=== PATIENT | female | born 1950 | race African-American/Black ===

== ENCOUNTER → 2020-10-26 | Outpatient (CLI) | payer BC ==
[2020-10-24 08:16] LABS: COVID AG,FIA SOURCE NASOPHARYNGEAL
[~2020-10-26] MED LIST: ACETAMINOPHEN 1000 MG/ISO-OSM 100 ML IV ONE; BUPIVACAINE HCL/PF 0.25% 30 ML VIAL ONE; BUPIVACAINE HCL/PF 0.5% 30 ML VIAL ONE; CeFAZolin 1 GM/DEXTROSE 0 ML IV ONE; CeFAZolin 2 GM/DEXTROSE 50 ML IV ONE; MEPERIDINE-PF 25 MG/ML VIAL ONE; MICROFIBRILLAR COLLAGEN 1 GM PACKAGE TP ONE; MUPIROCIN CALCIUM 2% 22 GM OINTMENT ONE; RINGERS SOLUTION,LACTATED 1,000 ML IV ONE; SODIUM CL IRRIG SOLN BAG 3,000 ML IRRIG ONE; SUGAMMADEX SODIUM 200 MG/2 ML VIAL IVP ONE; VANCOMYCIN HCL 1 GM/VIAL ONE
== END | disposition home or self-care (01) ==
LOC: EDSTATUS 07:00 → LABMN 08:00 → SDS 08:00
PROVIDERS: ATTEND Orthopaedic Surgery
DX: T84.84XA Pain due to internal orthopedic prosthetic devices, implants and grafts, initial encounter (principal); Z53.8 Procedure and treatment not carried out for other reasons; Z20.822 Contact with and (suspected) exposure to COVID-19; Y83.8 Other surgical procedures as the cause of abnormal reaction of the patient, or of later complication, without mention of misadventure at the time of the procedure; Y92.89 Other specified places as the place of occurrence of the external cause
CPT/HCPCS: 87426; C9803; A9575; J0131; J0690; J2175; J3370; J3490; J7120